=== PATIENT | female | born 1995 | race Caucasian/White ===

== ENCOUNTER 2017-04-09 20:29 | Emergency (ER) | payer OTHER | END 2017-04-09 21:11 | disposition home or self-care (01) | LOC: E/R 21:11 | DX: L01.00 Impetigo, unspecified (principal); J30.2 Other seasonal allergic rhinitis | CPT/HCPCS: 99284; Z7502 ==

== ENCOUNTER 2017-12-20 20:35 | Emergency (ER) | payer OTHER | END 2017-12-20 22:23 | disposition home or self-care (01) | LOC: FTE 20:35 | DX: R21 Rash and other nonspecific skin eruption (principal) | CPT/HCPCS: 99283; Z7502 ==

== ENCOUNTER 2017-12-31 15:52 | Emergency (ER) | payer OTHER ==
[2017-12-31 19:01] LABS: ADD UMIC NO; UR ASCORBIC ACID 40 mg/dL (NEGATIVE); UR BILIRUBIN (Dip) NEGATIVE (NEGATIVE); UR BLOOD (Dip) NEGATIVE (NEGATIVE); UR CLARITY CLEAR (CLEAR); UR COLOR YELLOW (YELLOW); UR GLUCOSE (Dip) NEGATIVE (NEGATIVE); UR KETONES (Dip) NEGATIVE (NEGATIVE); UR LEUKOCYTE ESTERASE (Dip) NEGATIVE Leu/ul (NEGATIVE); UR NITRITE (Dip) NEGATIVE (NEGATIVE); UR TOTAL PROTEIN (Dip) NEGATIVE (NEGATIVE); UR UROBILINOGEN (Dip) NEGATIVE (NEGATIVE)
== END 2017-12-31 19:04 | disposition home or self-care (01) ==
LOC: FTE 15:52
DX: L02.214 Cutaneous abscess of groin (principal)
CPT/HCPCS: 81003; 81025; 87591; 99284